=== PATIENT | female | born 1980 | race Caucasian/White ===

== ENCOUNTER 2017-03-26 22:07 | Emergency (ER) | payer MEDICARE, MEDICAID ==
[~2017-03-26] VITALS: Ht 185.4 cm; Wt 141.0 kg
[2017-03-26 22:18] VITALS: BP 126/56; PULSE 98; RESP 18; TEMP 98.3; O2SAT 99
--- NOTE | 2017-03-26 22:41 | PD ---
HPI Chief Complaint: Skin Problem Time Seen by Provider: 22:26 Travel History International Travel<30 days: No Contact w/Intl Traveler<30days: No History of Present Illness HPI 36yo F with mood disorder here with c/o pain from sunburn in bilateral legs. Pt was sitting in the ocean 2 days ago for hours and did not reapply sunblock. Pt has sunburn to bilateral arms and legs but only the legs hurt. Pt had blisters in her legs that ruptured and she has been putting bandaid over the ruptured blistered and now cant peel the bandaids off. Has been using aloe vera. PFSH Social History Tobacco Use: No Allergies-Medications (Allergen,Severity, Reaction): Coded Allergies: Penicillins (Verified Allergy, Unknown, HIVES, 03/26/17) naproxen (Verified Allergy, Unknown, LIPS WELL, 03/26/17) Reported Meds & Prescriptions Reported Meds & Active Scripts Active Tylenol (Acetaminophen) 325 Mg Tab 650 Mg PO Q6H PRN Bacitracin Topical 500 Unit/Gm Oint 1 Applic TOPICAL BID 7 Days Reported Amitriptyline (Amitriptyline HCl) 50 Mg Tab 50 Mg PO HS Ambien CR (Zolpidem Tartrate) 12.5 Mg Tab 12.5 Mg PO HS PRN Robaxin (Methocarbamol) 750 Mg Tab 750 Mg PO BID Topamax (Topiramate) 100 Mg Tab 100 Mg PO BID Pantoprazole (Pantoprazole Sodium) 40 Mg Tab 40 Mg PO DAILY Ranitidine 75 (Ranitidine HCl) 75 Mg Tab 75 Mg PO BID Take 30 to 60 minutes before eating food or drinking beverages that cause heartburn. Cymbalta DR (Duloxetine HCl) 30 Mg Capdr 30 Mg PO DAILY Abilify (Aripiprazole) 10 Mg Tab 5 Mg PO DAILY Synthroid (Levothyroxine Sodium) 175 Mcg Tab 175 Mcg PO DAILY Voltaren (Diclofenac Sodium) 100 Gm Gel..gram. Unknown Dose TOPICAL DAILY PRN Review of Systems Except as stated in HPI: all other systems reviewed are Neg Physical Exam Narrative GEN: 36yo F in mild distress. SKIN: 1st degree sunburn in bilateral arms and legs. 2% of total body surface clear blisters in bilateral anterior tibia. CV: S1, S2. Lungs: CTA B/L, equal breath sounds. Abd: soft, NT/ND. No rebound tenderness or guarding. Ext: Weeping with clear blisters noted on bilateral tibia. Blister is about 2% of total body surface. Erythema in all 4 extremities. DP 2+ bilaterally. NEURO: no focal neurologic deficits. Data Data Last Documented VS Vital Signs Date Time Temp Pulse Resp B/P Pulse Ox O2 Delivery O2 Flow Rate FiO2 03/27/17 00:32 78 18 128/56 99 03/26/17 22:18 98.3 Orders Tetanus/Diphtheria Tox Adult (Tetanus/Di (03/26/17 23:00) Bacitracin Oint (Baciguent Oint) (03/26/17 23:00) Acetamin-Hydrocod 325-5 Mg (Rosamond 5-325 (03/26/17 23:00) MDM Medical Decision Making Medical Screen Exam Complete: Yes Emergency Medical Condition: Yes Differential Diagnosis First degree sunburn with some 2nd degree sunburn vs. partial thickness 1st degree burn Narrative Course 36yo F with c/o sunburn after sitting in the ocean for hours 2 days ago without reapplying sunblock. No other complaints. No nausea. No fever. Pt tolerating PO and can hydrate orally. Unknown last tetanus so given today. Pt given lortab, bacitracin. Bilateral lower extremity blisters are weeping already and dressed with bacitracin and nonstick dressing. Return precautions given. Diagnosis Primary Impression: Sunburn Patient Instructions: General Instructions Departure Forms: Tests/Procedures Additional Instructions: Please follow up with your primary care physician in 1-2 days. Return to the ED if you have fever, vomiting or any other concerning symptoms. Please drink plenty of fluid and applied bacitracin topical to open wounds as instructed. Cover the area where there is sunburn and protect against the sun. Apply aloe vera for pain. Med/Other Pt SpecificInfo: Prescription(s) given Scripts Acetaminophen (Tylenol)325 Mg [id number] Mg PO Q6H PRN (PAIN SCALE 1 TO 4) #20 TAB Ref 0 Prov:Doreen Squires DO 03/26/17 Bacitracin Topical 500 Unit/Gm Oint1 Applic TOPICAL BID 7 Days Ref 0 Prov:Doreen Squires DO 03/26/17 Disposition: 01 DISCHARGE HOME Condition: Stable Doreen Squires DO Mar 26, 2017 22:41
[2017-03-26] MEDS ORDERED: PANT40TA3 PO (22:42)
[2017-03-26] MEDS ORDERED: RANI1TAB5 PO (22:42)
[2017-03-26] MEDS ORDERED: VOLT1GEL4 TOPICAL (22:42)
[2017-03-26] MEDS ORDERED: AMIT50TA3 PO (22:42)
[2017-03-26] MEDS ORDERED: ROBA750T PO (22:42)
[2017-03-26] MEDS ORDERED: ARIP1TAB5 PO (22:42)
[2017-03-26] MEDS ORDERED: SYNT175T PO (22:42)
[2017-03-26] MEDS ORDERED: CYMB30CA PO (22:42)
[2017-03-26] MEDS ORDERED: TOPA100T11 PO (22:42)
[2017-03-26] MEDS ORDERED: AMBI12.5 PO (22:42)
[2017-03-26] MEDS ORDERED: BACITRACIN TOP OINT 15 GM TUBE TOPICAL ONE (23:00)
[2017-03-26] MEDS ORDERED: ACETAMINOPHEN/HYDROcodone 325 MG/5 MG TAB PO ONE (23:00)
[2017-03-26] MEDS ORDERED: TETANUS/DIPHTHERIA TOXOID ADULT 0.5 ML VIAL IM ONE (23:00)
[2017-03-26] MEDS ORDERED: BACI500O2 TOPICAL (23:09)
[2017-03-26] MEDS ORDERED: TYLE325T PO (23:09)
[2017-03-27 00:03] VITALS: RESP 18
[2017-03-27 00:32] VITALS: BP 128/56
== END 2017-03-27 00:43 | disposition home or self-care (01) ==
LOC: PHEFT 22:07
DX: L55.0 Sunburn of first degree (principal); Z23 Encounter for immunization; Z86.59 Personal history of other mental and behavioral disorders; X32.XXXA Exposure to sunlight, initial encounter; Y92.832 Beach as the place of occurrence of the external cause
CPT/HCPCS: 16000; 90471; 90714; G0010